=== PATIENT | male | born 1970 | race Two or more races ===

== ENCOUNTER 2018-09-18 14:41 | Emergency (ER) | payer SELFPAY ==
[~2018-09-18] VITALS: Ht 165.1 cm; Wt 100.0 kg
[2018-09-18 15:00] VITALS: BP 144/89
== END 2018-09-18 16:00 | disposition home or self-care (01) ==
LOC: ER 14:48
DX: F16.10 Hallucinogen abuse, uncomplicated (principal); R40.4 Transient alteration of awareness; I10 Essential (primary) hypertension; R56.9 Unspecified convulsions
CPT/HCPCS: 99283